=== PATIENT | male | born 1970 | race Caucasian/White ===

== ENCOUNTER 2025-01-14 10:07 | Emergency (ER) | payer MEDICAID, SELFPAY ==
--- NOTE | 2025-01-14 10:16 | PD.EDMEDCL ---
ED Medical Clearance RME/HPI General Chief complaint: Medical Clearance Stated complaint: medical clearance Time Seen by Provider: 01/14/25 10:15 Arrival date/time: 01/14/25 10:07 Limitations: no limitations RME / HPI RME / HPI Narrative: DR. GRANT MAIN ED EVALUATION: 54-year-old male with past medical history of hypertension presents to the Emergency Department from [facility] for medical clearance for asymptomatic hypertension. He reports a history of left arm fracture 5 months ago with reinjury 2?3 days ago. He did not see a doctor nor an orthopedic surgeon about his arm fracture. Denies any arm pain. he also occasionally notes difficulty breathing but denies chest pain, fever, chills, nausea, or other symptoms. He takes ibuprofen for arm pain. Patient has not taken his blood pressure medications for some time. Does not know the names of his medications. Denies drugs alcohol smoking. Allergies include clindamycin (rash), cephalexin/Keflex (swelling of lips/tongue/throat), sulfa (swelling of lips/tongue/throat), ciprofloxacin (swelling of lips/tongue/throat), amlodipine, lisinopril, and lithium. Related Information Home Medications ?Medication ?Instructions ?Recorded ?Confirmed lisinopril 5 mg tablet 5 mg PO BID 12/18/19 12/18/19 Allergies Allergy/AdvReac Type Severity Reaction Status Date / Time amlodipine Allergy Verified 11/14/20 00:37 cephalexin (From Keflex) Allergy Verified 11/14/20 00:37 ciprofloxacin (From Cipro) Allergy Swelling Verified 12/18/19 05:37 of Lip/Tongue/Throat clindamycin Allergy Rash Verified 12/18/19 05:37 lisinopril Allergy Verified 11/14/20 00:37 lithium Allergy Verified 11/14/20 00:37 sulfur dioxide Allergy Swelling Verified 12/18/19 05:37 of Lip/Tongue/Throat Review of Systems Review of Systems Systems Reviewed: All systems reviewed, normal except as documented Past Medical History Past Medical History CARDIAC: Positive Deep Vein Thrombosis and Hypertension ENDOCRINE: Positive Hyperthyroidism Social History SMOKING STATUS: Never smoker SUBSTANCE USE: does not use ALCOHOL: Never ED Exam General Limitations: Present no limitations General appearance: Present alert and in no apparent distress Head Head exam: Present atraumatic, normocephalic and normal inspection Eye Eye exam: Present normal appearance, PERRL and EOMI ENT ENT exam: Present normal exam, normal oropharynx and mucous membranes moist Neck Neck exam: Present normal inspection, full ROM and trachea midline Chest Chest inspection: Present normal inspection and symmetric chest wall rise Respiratory Respiratory exam: Present normal lung sounds bilaterally Cardiovascular Cardiovascular exam: Present regular rate and normal rhythm Abdominal Exam Abdominal exam: Present soft; Absent distention, tenderness, guarding or rebound Extremities Exam Extremities exam: Present other (left arm deformity at the forearm, compartments are soft, 2+ radial ulnar pulses bilateral symmetric intact, no hand pain, no pain at the elbow, no pain at the shoulder, minimal discomfort appreciated at the deformity, skin is intact) Back Exam Back exam: Present normal inspection and full ROM Neurological Exam Neurological exam: Present alert, oriented X3, CN II-XII intact and normal gait; Absent motor sensory deficit Psychiatric Psychiatric exam: Present normal affect and normal mood Skin Skin exam: Present warm, dry, intact and normal color Course Quality Measures none Orders Category Date Time Status Bedside COVID-19 Antigen Test NOW Care 01/14/25 10:19 Completed Bedside Influenza A&B Antigen Test NOW Care 01/14/25 10:19 Completed EKG (ED ONLY) *Do not use* NOW Care 01/14/25 10:18 Completed EKG (ED Only) Stat Exams 01/14/25 10:17 Draft XR chest 1V Stat Exams 01/14/25 10:17 Completed XR forearm LT 2V Stat Exams 01/14/25 10:17 Completed XR hand comp LT min 3V Stat Exams 01/14/25 10:17 Completed BNP [B-Type Natriuretic Peptide] Stat Lab 01/14/25 11:29 Completed CBC Stat Lab 01/14/25 11:29 Completed CMP [Comprehensive Metabolic Panel] Stat Lab 01/14/25 11:29 Completed Troponin I Stat Lab 01/14/25 11:29 Completed Labetalol IV [Trandate IV] Med 01/14/25 10:46 Discontinued 10 mg IVP X1 ONE Labetalol Tab [Trandate Tab] Med 01/14/25 13:40 Discontinued 100 mg PO X1 ONE Magnesium Sulfate 2 GM Ivpb [Magnesium Sulfate Ivpb] Med 01/14/25 11:26 Discontinued 2 gm in 50 ml IV X1 hydrALAZINE INJ [Apresoline Inj] Med 01/14/25 10:16 Discontinued 15 mg IM X1 ONE hydrALAZINE INJ [Apresoline Inj] Med 01/14/25 11:25 Discontinued 15 mg IM X1 ONE hydrALAZINE INJ [Apresoline Inj] Med 01/14/25 11:26 Discontinued 15 mg IM X1 ONE Vital Signs Vital signs: Vital Signs Temperature 98.4 F 01/14/25 10:41 Pulse Rate 76 01/14/25 10:41 Respiratory Rate 19 01/14/25 10:41 Blood Pressure 201/124 H 01/14/25 10:41 Pulse Oximetry (%) 98 01/14/25 10:41 Oxygen Delivery Method Room Air 01/14/25 10:41 Medical Clearance MDM Narrative MDM Narrative:: I, Liset Mcclellan, am scribing for and in the presence of Dr. Grant. Patient presents for medical clearance prior to incarceraion. Occasionally feels sob, and left arm pain 2/2 to an old injury to his arm. VS and exam as listed. Concern for ACS arrhythmia electrolyte abnormality pneumonia malunion of his fracture among others. Ordered labs EKG chest x-ray as well as x-ray of the left upper extremity. Labs without any acute hematologic abnormality, no acute electrolyte abnormality, no transaminitis, troponin is not elevated, BNP is 594. Patient is on room air not tachypneic not short of breath at this time. Blood pressure downtrended. X-ray of the upper extremity with old healed fractures of the radius and ulna. Given that these injuries have healed recommended the patient sees an orthopedic surgeon as outpatient for further evaluation and workup. Did provide patient with a sling today. Chest x-ray pending. Patient requested to leave AGAINST MEDICAL ADVICE. Understands that we have not finished ruling out acute left threatening pathology, nor any pathology could result in severe disability. Despite this patient has left AGAINST MEDICAL ADVICE. Patient data External records reviewed:: [facility] previous records Clinical information provided by:: patient and law enforcement Social determinants that could affect healthcare access:: none Patient has the following chronic illnesses:: Hypertension. Allergies include clindamycin (rash), cephalexin/Keflex (swelling of lips/tongue/throat), sulfa (swelling of lips/tongue/throat), ciprofloxacin (swelling of lips/tongue/throat), amlodipine, lisinopril, and lithium. How is presenting disease/condition affected by chronic disease/condition?: exacerbated by Evaluation data The following diagnostics were reviewed and interpreted by me:: lab results, radiology exam(s) and EKG tracing(s) Lab and/or radiology exams considered but not ordered:: none Interpretation Summary: My interpretation: EKG performed at 1030 hours, sinus rhythm, rate 62, prolonged QT 515, normal DC, nonspecific T wave changes in V1, V2 and V3no cardiac alert Medications / Prescriptions Medications or Prescriptions considered but not ordered:: none Medication administrations:: Medication Administration History Discontinued Medications Hydralazine HCl (Hydralazine Inj 20 Mg/Ml Vial) 15 mg IM X1 ONE Stop: 01/14/25 10:17 Hydralazine HCl (Hydralazine Inj 20 Mg/Ml Vial) 15 mg IM X1 ONE Stop: 01/14/25 11:26 Last Admin: 01/14/25 11:34 Dose: 15 mg Documented By: CS Hydralazine HCl (Hydralazine Inj 20 Mg/Ml Vial) 15 mg IM X1 ONE Stop: 01/14/25 11:27 Magnesium Sulfate (Magnesium Sulfate Ivpb) 2 gm in 50 mls @ 25 mls/hr IV X1 ONE Stop: 01/14/25 13:25 Last Admin: 01/14/25 13:00 Dose: Not Given Labetalol HCl (Labetalol Inj 5 Mg/Ml Vial 20 Ml) 10 mg IVP X1 ONE Stop: 01/14/25 10:47 Labetalol HCl (Labetalol 100 Mg Tablet) 100 mg PO X1 ONE Stop: 01/14/25 13:41 Last Admin: 01/14/25 13:44 Dose: 100 mg Documented By: MARGARITA see above if any Consultations Consultation(s) initiated? (list below): No Diagnosis Medical Clearance Differential Diagnosis: other (Asymptomatic hypertension, musculoskeletal pain from prior arm fracture reinjury, and cardiopulmonary causes of shortness of breath (COPD/asthma or heart failure exacerbation).) Most likely diagnosis given after review of the tests above:: Asymptomatic hypertension, healed radius ulnar fracture of the left upper EXTR Admission Indicated Admission indicated?: not indicated Admission Request Was there a request for admission?: No Disposition Plan Disposition Plan: Discharge Discharge Attestation Discharge Attestation: The patient and all family members were given an opportunity to ask questions and understood the discharge instructions. Discharge instructions specifically effects, indications for sooner follow up or return to the emergency department, and the expected course of current diagnosis. Patient condition: Stable Discharge Plan Plan Patient Disposition: Elopement Discharge Disposition comment: PT WALKED OUT OF ED ROOM AT THIS TIME Prescriptions/Referrals Prescriptions/Med Rec: No Action lisinopril 5 mg Tablet 5 mg PO BID Referrals: Justino Gr MD [Primary Care Provider, Family Practice] - In 1 week Problem List Clinical Impression: Arm fracture, left, Breath shortness, Hypertension Patient/Caregiver Discharge Instructions Education Materials: How Bones Heal, Hypertension Dc Additional Instructions: Please discuss blood pressure management with your primary care doctor. Please request referral to see an orthopedic surgeon for management of your healed left arm fracture. Print Language: [employer] Stand Alone Forms: Abby Award Info., Patient Portal Info Letter
--- NOTE | 2025-01-14 10:17 | EKG_ITS ---
[facility] Test Date: 2025-01-14 Pat Name: LEENANE ORTIZ Department: Room: - Gender: Male Clerk: : 1970 Requested By: Maria G Figueroa Order Number: [id number] Reading MD: Maria G Figueroa Measurements Intervals [place] Rate: 62 P: 40 WI: 134 QRS: 6 QRSD: 97 T: 80 QT: 510 QTc: 520 Interpretive Statements SINUS RHYTHM POSSIBLE LEFT ATRIAL ENLARGEMENT [-0.1mV P-WAVE IN V1/V2] POSSIBLE LEFT VENTRICULAR HYPERTROPHY [VOLTAGE CRITERIA PLUS LAE OR QRS WIDENING] ST DEVIATION AND MODERATE T-WAVE ABNORMALITY, CONSIDER ANTERIOR ISCHEMIA [-0.1+ mV T-WAVE IN V3/V4] No previous ECG available for comparison /[id number]/[email or web address]/[id number].pdf
--- NOTE | 2025-01-14 10:17 | XR_ITS ---
Examination: AP chest single view Technique one AP portable semiupright chest single view Date and time: January 14, 2025, 12 0 2:00 PM Indications: Shortness of breath today Findings: Mild enlargement left ventricle Ectatic thoracic aorta. Mild vascular congestion. No lobar pneumonia or pulmonary edema. Moderate osteopenia Impression: Mild vascular congestion No lobar pneumonia or pulmonary edema
--- NOTE | 2025-01-14 10:17 | XR_ITS ---
Examination: Forearm, left, 2 views. Technique: Forearm, AP, lateral 2 views Date and time of exam: January 14, 2025, 12 0 6:00 PM Indications: History forearm fractures 5 months ago. Findings: Healed fractures distal radius and ulna, no prior films available for comparison No acute fracture Moderate narrowing radiocarpal joint Impression: Healed fractures distal radius distal ulna On the lateral view the distal ulna is dorsally positioned, recommend follow-up true lateral view of the wrist as clinically warranted
--- NOTE | 2025-01-14 10:17 | XR_ITS ---
Examination: Hand, left 3 views Technique: Hand AP, oblique, lateral 3 views Date and time of exam: January 14, 2025, 1203 hrs. Indications: Patient fell 2 days ago with injury to the hand, hand pain Findings: Old fractures of the distal ulna and radius Old fracture middle phalanx fifth digit No acute fracture Impression: No acute fracture
[2025-01-14 10:41] VITALS: BP 199/132; BP 201/124; PULSE 76; RESP 19; TEMP 36.9; O2SAT 98
[2025-01-14 10:43] VITALS: BMI 22.1
[2025-01-14 11:34] VITALS: BP 214/117; PULSE 59
[2025-01-14] MEDS: hydrALAZINE INJ 20 MG/ML VIAL 15 MG IM (11:34)
[2025-01-14 11:44] LABS: Basophils # (Auto) 0.0 Thou/mm3 (0.0-0.2); Basophils % (Auto) 0 % (0-2.5); Eosinophils # (Auto) 0.2 Thou/mm3 (0.0-0.5); Eosinophils % (Auto) 3 % (0-10); Hematocrit 37.0 % (41.0-53.0); Hemoglobin 12.1 g/dL (13.5-16.0); Immature Granulocytes Auto 0.01 Thou/mm3 (0.00-0.00); Lymphocytes # (Auto) 0.9 Thou/mm3 (1.0-4.8); Lymphocytes % (Auto) 12 % (10-50); Mean Corpuscular HGB Conc 32.7 g/dl (31.0-37.0); Mean Corpuscular Hemoglobin 27.4 pg (25.0-35.0); Mean Corpuscular Volume 84 fL (80-100); Monocytes # (Auto) 0.4 Thou/mm3 (0.0-0.8); Monocytes % (Auto) 6 % (0-12); Neutrophils # (Auto) 5.6 Thou/mm3 (1.8-7.7); Neutrophils % (Auto) 79 % (37-80); Nucleated Red Blood Cell # 0.00 Thou/mm3 (0.00-0.00); Nucleated Red Blood Cell % 0 /100 WBC (0); Platelet Count 230 Thou/mm3 (140-440); RDW Standard Deviation 41.4 fL (35.1-43.9); Red Blood Count 4.42 Miln/mm3 (4.50-5.90); White Blood Count 7.1 Thou/mm3 (3.8-10.6)
[2025-01-14 13:01] LABS: Alanine Aminotransferase 24 U/L (10-49); Albumin, Serum 4.1 gm/dL (3.5-5.0); Albumin/Globulin Ratio 1.6 (1.2-2.2); Alkaline Phosphatase 91 U/L (46-116); Anion Gap 9 (7-16); Aspartate Amino Transferase 31 U/L (0-34); BUN/Creatinine Ratio 20 Ratio (12-20); Bilirubin,Total 0.5 mg/dL (0.3-1.2); Blood Urea Nitrogen 16 mg/dL (9-23); Calcium 9.3 mg/dL (8.3-10.6); Calcium (Corrected) 9.3 mg/dL (8.5-10.1); Carbon Dioxide 27.4 mMol/L (20.0-31.0); Chloride 105 mMol/L (98-107); Creatinine (Component) 0.8 mg/dL (0.6-1.3); Estimated Creatinine Clearance 106.6 mL/min (>60); Globulin 2.5 gm/dL (2.3-3.5); Glucose 83 mg/dL (74-106); Osmolality,Calculated 281 (275-295); Potassium 3.9 mMol/L (3.4-5.1); Sodium 141 mMol/L (136-145); Total Protein 6.6 gm/dL (5.7-8.2); Troponin I 0.028 ng/mL (0.0-0.045); eGFR > 60 See Note
[2025-01-14 13:02] LABS: B-Type Natriuretic Peptide 594 pg/mL (0-100)
[2025-01-14 13:33] VITALS: BP 187/105; PULSE 82; RESP 18; TEMP 36.8; O2SAT 98
[2025-01-14 13:44] VITALS: BP 187/105; PULSE 64
[2025-01-14] MEDS: LABETALOL 100 MG TABLET PO (13:44)
[2025-01-14 15:11] VITALS: BP 187/108; PULSE 65
== END 2025-01-14 15:52 | disposition left against medical advice (07) ==
PROVIDERS: Emergency Provider Emergency Medicine; PCP Family Medicine
DX: Z02.89 Encounter for other administrative examinations (principal); I10 Essential (primary) hypertension; R94.31 Abnormal electrocardiogram [ECG] [EKG]; Z87.81 Personal history of (healed) traumatic fracture; Z53.29 Procedure and treatment not carried out because of patient's decision for other reasons
CPT/HCPCS: 36415; 71045; 73090; 73130; 80053; 83880; 84484; 85025; 87400; 87811; 93005; 96372; 99283; J0360; A9270